=== PATIENT | female | born 1995 | race Caucasian/White ===

== ENCOUNTER 2017-05-09 17:06 | Emergency (ER) | payer BC ==
[~2017-05-09] VITALS: Ht 180.3 cm; Wt 118.2 kg
[~2017-05-09 17:06] MED LIST: ACETAMINOPHEN W1 TA6 PO; LORTAB ELIX0.5 MG/ML PO; MOTRIN 800800 MG/TAB PO; PERCOCET 325 MG1 TA2 PO; PRENATAL1 TA7 PO; ULTRAM 50MG TAB50 MG; ZANTAC 7575 MG PO; ZITHROMAX Z PA250 MG PO; ZOLOFT 50MG50 MG PO; [UNRECOGNIZED DRUG - CODE] IJ
[2017-05-09 17:13] VITALS: BP 110/63; TEMP 97.9
[2017-05-09] MEDS ORDERED: DESYREL 50MG50 MG PO (17:16)
[2017-05-09] MEDS ORDERED: CHANTIX START M1 TAB PO (17:16)
[2017-05-09] MEDS ORDERED: CYMBALTA 60MG60 MG PO (17:16)
[2017-05-09 18:06] VITALS: PULSE 79
== END 2017-05-09 18:07 | disposition home or self-care (01) ==
LOC: COL.ER 17:06
DX: S53.401A Unspecified sprain of right elbow, initial encounter (principal); F17.210 Nicotine dependence, cigarettes, uncomplicated; F32.9 Major depressive disorder, single episode, unspecified; F41.9 Anxiety disorder, unspecified; W01.0XXA Fall on same level from slipping, tripping and stumbling without subsequent striking against object, initial encounter; Y92.009 Unspecified place in unspecified non-institutional (private) residence as the place of occurrence of the external cause

== ENCOUNTER 2018-09-15 20:01 | Emergency (ER) | payer BC ==
[~2018-09-15] VITALS: Ht 180.3 cm; Wt 145.5 kg
[~2018-09-15 20:01] MED LIST changes: +CHANTIX START M1 TAB PO; +CYMBALTA 60MG60 MG PO; +DESYREL 50MG50 MG PO
[2018-09-15 20:14] VITALS: TEMP 98.7
[2018-09-15 21:36] LABS: BASO # 0.1 (0.0-0.2); BASO % 0.4 % (0.0-2.0); EOS # 0.3 (0.0-0.7); EOS % 2.3 % (0-4.0); GRAN # 7.6 (1.4-6.5); GRAN % 63.3 % (42.2-75.2); HEMOGLOBIN 13.4 g/dl (12.5-16.0); LYMPH # 3.2 (1.2-3.4); LYMPH % 26.4 % (20.0-51.0); MEAN CELL VOLUME 87 fl (80.0-100.0); MEAN CORPUSCULAR HEMOGLOBIN 28 pg (27.0-31.0); MEAN CORPUSCULAR HGB CONC 33 g/dl (33.0-37.0); MEAN PLATELET VOLUME 9.2 fl (7.4-10.4); MONO # 0.9 (0.1-0.6); MONO % 7.3 % (1.7-9.3); PLATELET COUNT 375 K/mm3 (130-400); RED BLOOD COUNT 4.74 M/mm3 (4.10-5.30); REDCELL DISTRIBUTION WIDTH-CV 13.5 % (11.5-14.5)
[2018-09-15 21:45] LABS: ALBUMIN 4.2 gm/dL (3.5-5.0); BILIRUBIN,TOTAL 0.2 mg/dL (0.0-1.0); CALCIUM 9.3 mg/dL (8.4-10.2); CREATININE, serum 0.75 mg/dL (0.52-1.25); POTASSIUM 4.1 mmol/L (3.4-5.0); TOTAL PROTEIN 7.8 gm/dL (6.4-8.2)
[2018-09-16 00:10] VITALS: BP 138/70; PULSE 78
== END 2018-09-16 00:19 | disposition home or self-care (01) ==
LOC: COL.ER 20:01
PROVIDERS: Physician Assistant
DX: M75.52 Bursitis of left shoulder (principal)

== ENCOUNTER 2019-11-08 07:07 | Inpatient (IN) | payer BC, MEDICAID ==
[~2019-11-08] VITALS: Ht 180.3 cm; Wt 149.1 kg
[2019-11-08] VITALS (23 sets, daily range): BP systolic 94–134; BP diastolic 5–70; PULSE 59–126; TEMP 97.5–98.9
[~2019-11-08 07:07] MED LIST changes: +INDERAL 10MG10 MG PO; +PRENATAL 19 CH1 EACH PO; +PROZAC 20MG20 MG PO
--- NOTE | 2019-11-08 07:20 | NUR ---
Pt here with c/o SROM at 0115. Pt to LDR 6 and to EFM. 38.3 weeks gestation, G3L1. GBS negative. SVE: amniotrace positive and clear fluid noted on exam. cervix 2-3/50/-2. Family at bedside. FHR reactive. Pt states baby has been active and denies regular contractions. Pt with hx of DVT with first and is taking Lovenox 40mg QD. Pt states taking it last noc. 0745:Dr James called and updated. Orders received to admit and start pitocin at 2mu per protocol.
[2019-11-08] MEDS ORDERED: LOVENOX 4040 MG/0.4 SQ (07:38)
[2019-11-08 08:38] LABS: BASO % 0.3 % (0.0-2.0); EOS # 0.2 (0.0-0.7); EOS % 1.3 % (0-4.0); GRAN # 11.9 (1.4-6.5); GRAN % 77.5 % (42.2-75.2); HEMATOCRIT 35.2 % (37.0-47.0); HEMOGLOBIN 11.6 g/dl (12.5-16.0); LYMPH # 2.2 (1.2-3.4); LYMPH % 14.4 % (20.0-51.0); MEAN CELL VOLUME 86 fl (80.0-100.0); MEAN CORPUSCULAR HEMOGLOBIN 28 pg (27.0-31.0); MEAN CORPUSCULAR HGB CONC 33 g/dl (33.0-37.0); MEAN PLATELET VOLUME 9.7 fl (7.4-10.4); MONO # 0.9 (0.1-0.6); PLATELET COUNT 320 K/mm3 (130-400); RED BLOOD COUNT 4.09 M/mm3 (4.10-5.30)
--- NOTE | 2019-11-08 11:17 | NUR ---
Pt sitting to EOB for epidural placement. Difficulty tracing FHR due to maternal postion. RN at bedside adjusting monitors. FHR audible.
--- NOTE | 2019-11-08 11:50 | NUR ---
Pt uncomfortable with epidural. Darrion Reyes CRNA at bedside. Medication administered. See anesthesia record. 1150-Brower catheter placed with return of clear, yellow urine. SVE per this RN 5/90/-1. 1205-Pt calling out with increased pressure. SVE per this RN 6/100/-2. Pt uncomfortable and uncontrolled during contractions 1210-Pt yelling increase of pressure. SVE per this RN 10/100/+1. Dr. James notified. See physician notification. Roles at bedside prepparing for Dr. James's arrival. 1221- of viable female infant attended by Dr. James. Nuchal cord x 1. Cord clamped x 2 and cut from umbilicus. Infant bulb suctioned, dried, and placed on mother's abdomen. Care of infant to Vandana Barrios RN. 1224- of placenta. Pitocin bolus infusing per protocol. Fundus firm at umbilicus. Bleeding WNL. Second degree laceration repaired performed by provider. Pericare performed. Ice pack applied. Pt updated on POC. Safety reviewed. No questions or concerns at this time.
[2019-11-09 08:28] VITALS: BP 103/64; PULSE 76; TEMP 98.1
[2019-11-09] MEDS ORDERED: IBU800 M1 PO (11:42)
--- NOTE | 2019-11-09 12:18 | NUR ---
sttopped by and offered congrats.
== END 2019-11-09 14:14 | disposition home or self-care (01) | DRG 807 ==
LOC: LDRO 07:07 → LDR 07:20 → LDRO 07:21 → LDR 07:52 → OB 17:00
PROVIDERS: ADMIT Obstetrics & Gynecology
PROC: 10E0XZZ Delivery of Products of Conception, External Approach (ICD-10-PCS; principal; 2019-11-08)
PROC: 0KQM0ZZ Repair Perineum Muscle, Open Approach (ICD-10-PCS; 2019-11-08)
DX: O99.344 Other mental disorders complicating childbirth (principal); Z37.0 Single live birth; O69.81X0 Labor and delivery complicated by cord around neck, without compression, not applicable or unspecified; O70.1 Second degree perineal laceration during delivery; F41.9 Anxiety disorder, unspecified; F32.9 Major depressive disorder, single episode, unspecified; Z3A.38 38 weeks gestation of pregnancy; Z86.718 Personal history of other venous thrombosis and embolism
CPT/HCPCS: J2400; J2590; J7120

== ENCOUNTER 2022-02-01 07:26 | Emergency (ER) | payer BC, MEDICAID ==
[~2022-02-01] VITALS: Ht 180.3 cm; Wt 95.5 kg
[~2022-02-01 07:26] MED LIST changes: +IBU800 M1 PO; +LOVENOX 4040 MG/0.4 SQ
[2022-02-01 07:34] VITALS: TEMP 97.9
[2022-02-01 07:40] LABS: COLLECTION METHOD CLEAN CATCH
[2022-02-01 08:00] LABS: BUDDING YEAST Present (NOT PRESENT); MUCOUS Present (NOT PRESENT); PH 5 (5-8); SQUAMOUS EPITHELIAL 20-50 /hpf (0-10); URINE APPEARANCE Turbid (CLEAR/HAZY); URINE BACTERIA Moderate /hpf (NONE SEEN); URINE BILIRUBIN Negative (NEGATIVE); URINE BLOOD 1+ (NEGATIVE); URINE COLOR Yellow (YELLOW); URINE GLUCOSE Negative (NEGATIVE); URINE KETONE Negative (NEGATIVE); URINE LEUKOCYTE ESTERASE 3+ (NEGATIVE); URINE NITRATE Positive (NEGATIVE); URINE PROTEIN(semi-quant) 2+ (NEGATIVE); URINE UROBILINOGEN Negative (NEGATIVE)
[2022-02-01 08:11] LABS: BASO # 0.1 K/mm3 (0.0-0.2); BASO % 0.4 % (0.0-2.0); EOS # 0.1 K/mm3 (0.0-0.7); EOS % 1.1 % (0.0-4.0); GRAN # 9.4 K/mm3 (1.4-6.5); GRAN % 72.1 % (42.2-75.2); HEMATOCRIT 42.8 % (37.0-47.0); LYMPH # 2.4 K/mm3 (1.2-3.4); LYMPH % 18.4 % (20.0-51.0); MEAN CELL VOLUME 90 fl (80.0-100.0); MEAN CORPUSCULAR HEMOGLOBIN 29 pg (27-31); MEAN CORPUSCULAR HGB CONC 33 g/dl (33.0-37.0); MEAN PLATELET VOLUME 9.5 fl (7.4-10.4); MONO % 7.8 % (1.7-9.3); PLATELET COUNT 365 K/mm3 (130-400); RED BLOOD COUNT 4.76 M/mm3 (4.10-5.30); REDCELL DISTRIBUTION WIDTH-CV 13.2 % (11.5-14.5)
[2022-02-01 08:23] LABS: BILIRUBIN,TOTAL 0.3 mg/dL (0.2-1.2); CALCIUM 9.8 mg/dL (8.4-10.2); CREATININE, serum 0.73 mg/dL (0.57-1.11)
[2022-02-01] MEDS ORDERED: BACTRIM DS 8001 TAB PO (09:22)
[2022-02-01] MEDS ORDERED: NORCO 325 MG-51 TAB PO (09:25)
[2022-02-01 09:44] VITALS: BP 123/85; PULSE 77
== END 2022-02-01 09:55 | disposition home or self-care (01) ==
LOC: COL.ER 07:26
PROVIDERS: Emergency Medicine
DX: N12 Tubulo-interstitial nephritis, not specified as acute or chronic (principal); D72.829 Elevated white blood cell count, unspecified; F17.210 Nicotine dependence, cigarettes, uncomplicated; Z32.02 Encounter for pregnancy test, result negative; Z91.040 Latex allergy status; Z28.310 Unvaccinated for COVID-19
CPT/HCPCS: J0696; J1885; J2270; J7030